=== PATIENT | female | born 1995 | race Caucasian/White ===

== ENCOUNTER → 2018-01-31 | Outpatient (CLI) | payer OTHER | LOC: COL.RAD 07:21 | DX: S76.012D Strain of muscle, fascia and tendon of left hip, subsequent encounter (principal) ==

== ENCOUNTER 2018-02-06 14:08 | Outpatient (RCR) | payer OTHER | END 2018-03-26 | disposition home or self-care (01) | LOC: WSOH | DX: S76.012A Strain of muscle, fascia and tendon of left hip, initial encounter (principal); W01.0XXA Fall on same level from slipping, tripping and stumbling without subsequent striking against object, initial encounter; Y93.01 Activity, walking, marching and hiking; Y92.214 College as the place of occurrence of the external cause; Y99.0 Civilian activity done for income or pay ==